=== PATIENT | female | born 1960 | race Caucasian/White ===

== ENCOUNTER 2018-09-19 07:59 | Outpatient (CLI) ==
--- NOTE | 2018-09-19 12:03 | MAMMO ---
EXAM: Digital screening mammogram with tomosynthesis HISTORY: Screening COMPARISON: 10/01/2013 FINDINGS: Digital MLO and CC views of the right and left breast were performed. Tomosynthesis was performed. Computer aided detection utilized. There are scattered fibroglandular densities. Benign left breast mass and benign bilateral calcifications. There is no evidence for mass, asymmetry, dis tortion, or suspicious calcifications in either breast. IMPRESSION: 1. No evidence of malignancy in the right or left breast. 2. Annual screening mammogram is recommended in one year. BIRADS category 2, benign
== END 2018-09-19 08:00 | disposition home or self-care (01) ==
LOC: RAD 07:59
PROVIDERS: ATTEND Nurse Practitioner Family
DX: Z12.31 Encounter for screening mammogram for malignant neoplasm of breast (principal)

== ENCOUNTER 2018-10-11 21:51 | Emergency (ER) ==
[2018-10-11 22:01] VITALS: BP 153/93; TEMP 98.6; BMI 27.9
[2018-10-11] MEDS ORDERED: PROTONIX IV IVP STA (22:06)
[2018-10-11] MEDS ORDERED: GI COCKTAIL PO STA (22:07)
[2018-10-11] MEDS ORDERED: PEPCID IVP STA (22:07)
--- NOTE | 2018-10-11 22:34 | CT ---
EXAM: CT chest without contrast. HISTORY: Chest pain. PROCEDURE: Contiguous axial CT images of the chest without contrast with coronal and sagittal reform ats. FINDINGS: The heart is within normal limits in size. The thoracic aorta is within normal limits in d iameter. There are calcified mediastinal and hilar lymph nodes and calcified granulomas in the lungs . There are mild emphysematous changes in the upper lobes. There is minimal bibasilar dependent ate lectasis. There are degenerative changes in the spine. CT abdomen/pelvis 10/11/2018 dictated laurie pearson. Impression: Minimal bibasilar dependent atelectasis. Mild chronic obstructive pulmonary disease. Old granulomatous disease.
--- NOTE | 2018-10-11 22:40 | CT ---
EXAM: CT of the abdomen and pelvis without contrast. HISTORY: Epigastric pain. PROCEDURE: Contiguous axial CT images of the abdomen and pelvis without contrast with coronal and sa gittal reformats. FINDINGS: The liver, gallbladder, pancreas, spleen, adrenal glands and kidneys are normal in appearan ce. The abdominal aorta is within normal limits in diameter. There are atherosclerotic calcificatio ns in the major arteries of the abdomen and pelvis. The appendix is normal in appearance. There is fecal stasis in the colon. There is diverticulosis of the colon with no evidence of diverticulitis. No free fluid or free air in the abdomen or pelvis. The bladder is minimally filled and normal in a ppearance. The uterus is surgically absent. There are degenerative changes in the spine. Impression: Diverticulosis of the colon with no evidence of diverticulitis. Fecal stasis in the colon. Atherosclerotic vascular disease. Hysterectomy.
--- NOTE | 2018-10-11 23:25 | ED.PDOC ---
General ED Provider: Dr. CONI OLIVARES-ER Chief Complaint: Chest Pain Stated Complaint: i ate a chili dog and my chest hurt Time Seen by Physician: 21:55 Mode of Arrival: Walk-In Information Source: Patient, Family Exam Limitations: No limitations Primary Care Provider: BRAULIO MARX Nursing and Triage Documentation Reviewed and Agree: Yes Does patient meet sepsis criteria?: No System Inflammatory Response Syndrome: Not Applicable Sepsis Protocol: For patient's 13 years and over: Temp is 96.8 and below OR 101 and greater Pulse >90 BPM Resp >20/minute Acutely Altered Mental Status Are patient's symptoms suggestive of a new infection, such as: -Pneumonia -Skin, Soft Tissue -Endocarditis -UTI -Bone, Joint Infection -Implantable Device -Acute Abdominal Infection -Wound Infection -Meningitis -Blood Stream Catheter Infection -Unknown Cardiovascular Complaint Exam - Chest Pain Complaint/Exam Onset: Sudden Duration: 30 min Symptoms Are: Resolved Initial Severity: Mild Current Severity: Mild Location: Reports: Discrete Character: Reports: Dull, Aching Aggravating: Reports: None Alleviating: Reports: None Associated Signs and Symptoms: Denies: Diaphoresis, Nausea, Vomiting, Fever, Palpitations, Cough, Hemoptysis, Back pain, Abdominal pain, Dizziness, Short of air, Calf pain, Calf swelling History of Healthcare-Acquired Pneumonia: Reports: No AMI/ACS Risk Factors: Reports: None TAD Risk Factors: Reports: None Pulmonary Embolism Risk Factors: Reports: None Prior Care for this Complaint: No Recent Stress Test: No Recent Echo/LV Function: No JVD Present: No Subcutaneous Emphysema Present: No Diminshed Breath Sounds: No Reproducible Chest Wall Pain: No Bilateral Pulses Present: Yes Unequal Pulses Noted: No Review of Systems - Review Of Systems Constitutional: Reports: No symptoms Eyes: Reports: No symptoms Ears, Nose, Mouth, Throat: Reports: No symptoms Respiratory: Reports: No symptoms Cardiac: Reports: Chest pain GI: Reports: No symptoms : Reports: No symptoms Musculoskeletal: Reports: No symptoms Skin: Reports: No symptoms Neurological: Reports: No symptoms Endocrine: Reports: No symptoms Hematologic/Lymphatic: Reports: No symptoms All Other Systems: Reviewed and Negative Past Medical History - Past Medical History Previously Healthy: No Endocrine: Reports: Unknown Cardiovascular: Reports: Unknown Respiratory: Reports: Unknown Hematological: Reports: Unknown Gastrointestinal: Reports: Unknown Genitourinary: Reports: Unknown Neuro/Psych: Reports: Unknown Musculoskeletal: Reports: Unknown Cancer: Reports: Unknown Last Menstrual Period: HAS HAD A HYSTERECTOMY - Surgical History General Surgical History: Reports: Unknown - Family History Family History: Reports: Unknown - Social History Smoking Status: Current every day smoker, Heavy tobacco smoker Hx Substance Use: No Alcohol Screening: None - Immunizations Tetanus Shot up to Date: (UNKNOWN) Physical Exam - Physical Exam Appearance: Well-appearing, No pain distress, Well-nourished Pain Distress: Mild Eyes: ADEEL, EOMI, Conjunctiva clear ENT: Ears normal, Nose normal, Oropharynx normal Neck: Supple Respiratory: Airway patent, Breath sounds clear, Breath sounds equal, Respirations nonlabored Cardiovascular: RRR, Pulses normal, No rub, No murmur GI/: Soft Musculoskeletal: Normal strength, ROM intact, No edema, No calf tenderness Skin: Warm, Dry, Normal color Neurological: Sensation intact, Motor intact, Reflexes intact, Cranial nerves intact, Alert, Oriented Psychiatric: Affect appropriate, Mood appropriate Interpretation - Radiology Interpretation Radiology Interpretation By: Radiologist Radiology Results: Negative Exam Interpreted: CT Scan - EKG Interpretation Time of EKG #1: 23:25 Rate: Normal Rhythm: Sinus Ectopy: None [place]: NL ST Segment: Normal Interpretation: nsr Critical Care Note - Critical Care Note Total Time (mins): 0 Course - Course Hematology/Chemistry: 10/11/18 22:10 10/11/18 22:10 Orders, Labs, Meds: Lab Review 10/11/18 10/11/18 10/11/18 22:10 22:10 22:10 WBC 7.13 RBC 4.08 L Hgb 13.4 Hct 39.8 MCV 97.5 MCH 32.8 H MCHC 33.7 RDW Coeff of Hali 12.2 Plt Count 244 Immature Gran % (Auto) 0.3 Neut % (Auto) 35.6 Lymph % (Auto) 51.1 H Whitley % (Auto) 8.0 Eos % (Auto) 3.9 Baso % (Auto) 1.1 Immature Gran # (Auto) 0.0 Neut # (Auto) 2.5 Lymph # (Auto) 3.6 H Whitley # (Auto) 0.6 Eos # (Auto) 0.3 Baso # (Auto) 0.1 D-Dimer (Manual) Sodium 138.2 Potassium 3.66 Chloride 101.8 Carbon Dioxide 28.0 Anion Gap 12.06 BUN 18.5 H Creatinine 1.14 Estimated GFR (MDRD) 49.00 BUN/Creatinine Ratio 16.22 Glucose 119.0 H Calcium 8.98 Total Bilirubin 0.47 AST 36.1 H ALT 15.6 Alkaline Phosphatase 93.5 Total Creatine Kinase 114.1 Troponin I < 0.012 Total Protein 7.37 Albumin 4.51 Globulin 2.86 Albumin/Globulin Ratio 1.57 Amylase 99.1 Lipase 219.7 TSH 12.700 H Free T4 1.21 10/11/18 22:10 WBC RBC Hgb Hct MCV MCH MCHC RDW Coeff of Hali Plt Count Immature Gran % (Auto) Neut % (Auto) Lymph % (Auto) Whitley % (Auto) Eos % (Auto) Baso % (Auto) Immature Gran # (Auto) Neut # (Auto) Lymph # (Auto) Whitley # (Auto) Eos # (Auto) Baso # (Auto) D-Dimer (Manual) 622.88 Sodium Potassium Chloride Carbon Dioxide Anion Gap BUN Creatinine Estimated GFR (MDRD) BUN/Creatinine Ratio Glucose Calcium Total Bilirubin AST ALT Alkaline Phosphatase Total Creatine Kinase Troponin I Total Protein Albumin Globulin Albumin/Globulin Ratio Amylase Lipase TSH Free T4 Orders Category Date Time Status EKG-(ED ONLY) Stat CARDIO 10/11/18 21:59 Completed ED NAIL TECHNICIAN APPLIED .ONCE EMERGENCY 10/11/18 21:59 Active ED IV/MEDIPORT/POWERPORT .ONCE EMERGENCY 10/11/18 21:59 Active AMYLASE Stat LAB 10/11/18 22:10 Completed CBC W/ AUTO DIFF Stat LAB 10/11/18 22:10 Completed COMPREHENSIVE METABOLIC PANEL Stat LAB 10/11/18 22:10 Completed CREATINE KINASE Stat LAB 10/11/18 22:10 Completed D-DIMER Stat LAB 10/11/18 22:10 Completed FREE T4 (FREE THYROXINE) Stat LAB 10/11/18 22:10 Completed LIPASE Stat LAB 10/11/18 22:10 Completed THYROID STIMULATING HORMONE Stat LAB 10/11/18 22:10 Completed TROPONIN I Stat LAB 10/11/18 22:10 Completed 0.9 % Sodium Chloride [Saline Flush] MEDS 10/11/18 21:59 Ordered 1 syr IVF PRN PRN Famotidine Inj [Pepcid] MEDS 10/11/18 22:07 Discontinued 40 mg IVP ONCE STA Mag-Al Plus//Lidocaine [Gi Cocktail] MEDS 10/11/18 22:07 Discontinued 30 ml PO ONCE STA Pantoprazole Sodium [Protonix IV] MEDS 10/11/18 22:06 Discontinued [address] ABDOMEN/PELVIS WO CONTRAST Stat RADS 10/11/18 22:[address] CHEST W/O CONTRAST Stat RADS 10/11/18 22:06 Completed Medications Generic Name Dose Route Start Last Admin Trade Name Freq PRN Reason Stop Dose Admin Sodium Chloride 1 syr 10/11/18 21:59 10/11/18 22:31 Saline Flush IVF 1 syr PRN PRN Administration To flush IV Discontinued Medications Generic Name Dose Route Start Last Admin Trade Name Freq PRN Reason Stop Dose Admin Al Hydroxide/Mg Hydroxide 30 ml 10/11/18 22:07 10/11/18 22:24 Gi Cocktail PO 10/11/18 22:08 30 ml ONCE STA Administration Famotidine 40 mg 10/11/18 22:07 10/11/18 22:27 Pepcid IVP 10/11/18 22:08 40 mg ONCE STA Administration Pantoprazole Sodium 40 mg 10/11/18 22:06 10/11/18 22:24 Protonix Iv IVP 10/11/18 22:07 40 mg ONCE STA Administration i had planned on admitting her for further testing but she declined-- understands risk even but declines admission Vital Signs: Temp Pulse Resp BP Pulse Ox 10/11/18 21:51 98.6 F 82 18 153/93 H 96 VIOLETA Risk Score VIOLETA Risk Score: Risk Score Odds of by 30D 0 0.1 (0.1-0.2) 1 0.3 (0.2-0.3) 2 0.4 (0.3-0.5) 3 0.7 (0.6-0.9) 4 1.2 (1.0-1.5) 5 2.2 (1.9-2.6) 6 3.0 (2.5-3.6) 7 4.8 (3.8-6.1) Departure - Departure Time of Disposition: 23:26 Disposition: AMA Discharge Problem: Chest pain Instructions: Chest Pain (ED) Condition: Good Pt referred to PMD for follow-up: No IPMP verified?: No Allergies/Adverse Reactions: Allergies clarithromycin [From Biaxin] Adverse Reaction (Verified 10/11/18 21:59) Swelling Iodinated Contrast- Oral and IV Dye Adverse Reaction (Verified 10/11/18 21:59) Rash Home Medications: Ambulatory Orders Ranitidine HCl [Zantac] 150 mg PO QDAC PRN 10/11/18 Disposition Discussed With: Patient, Family
== END 2018-10-11 23:35 | disposition left against medical advice (07) ==
LOC: ED 21:51
DX: R07.9 Chest pain, unspecified (principal); Z72.0 Tobacco use
CPT/HCPCS: 36415; 80053; 82150; 82550; 83690; 84439; 84443; 84484; 85025; 85379; 93005; 93010; 96374; 96375; 99284

== ENCOUNTER 2019-01-10 23:40 | Emergency (ER) ==
[2019-01-10 23:52] VITALS: BP 157/94; TEMP 97.8; BMI 28.0
--- NOTE | 2019-01-11 00:23 | ED.PDOC ---
General ED Provider: Dr. CONI OLIVARES-ER Chief Complaint: Hand Pain/Injury Stated Complaint: my left hand is numb and tingling when i bend my wrist Time Seen by Physician: 23:45 Mode of Arrival: Walk-In Information Source: Patient Exam Limitations: No limitations Primary Care Provider: BRAULIO MARX Nursing and Triage Documentation Reviewed and Agree: Yes Does patient meet sepsis criteria?: No System Inflammatory Response Syndrome: Not Applicable Sepsis Protocol: For patient's 13 years and over: Temp is 96.8 and below OR 101 and greater Pulse >90 BPM Resp >20/minute Acutely Altered Mental Status Are patient's symptoms suggestive of a new infection, such as: -Pneumonia -Skin, Soft Tissue -Endocarditis -UTI -Bone, Joint Infection -Implantable Device -Acute Abdominal Infection -Wound Infection -Meningitis -Blood Stream Catheter Infection -Unknown Neurological Complaint Exam - Neurological Deficit Complaint/Exam Patient Complains of: Reports: Abnormal sensation Symptom Onset Unknown: No Symptom Onset Date: 01/10/19 Onset: Sudden Symptoms Are: Resolved Initial Severity: Mild Current Severity: Mild Location: Reports: LUE Character: Reports: Numbness, Tingling, Paresthesia. Denies: Motor weakness, Paralysis, Sensory loss, Impaired speech Aggravating: Reports: None Alleviating: Reports: None Associated Signs and Symptoms: Denies: Confusion, Agitation, Responsiveness, LOC , Headache, Fever, Nuchal rigidity, Recent trauma, Remote trauma, Recent illness Related Surgical History: Reports: None Carotid Bruit Present: No Glascow Coma Scale (see protocol): 15 Meningeal Signs Positive: No Focal Weakness: Present: None Focal Sensory Loss: Present: None Gait: Normal Nystagmus Present: No Gag Reflex Present: Yes [id number]: Normal Findings Romberg Test Positive: No Babinski Sign: Negative Right, Negative Left Heel to Toe Normal: Yes Signs of Trauma: No IV t-PA Prescribed: No Differential Diagnoses: Other Review of Systems - Review Of Systems Constitutional: Reports: No symptoms Eyes: Reports: No symptoms Ears, Nose, Mouth, Throat: Reports: No symptoms Respiratory: Reports: No symptoms Cardiac: Reports: No symptoms GI: Reports: No symptoms : Reports: No symptoms Musculoskeletal: Reports: No symptoms Skin: Reports: No symptoms Neurological: Reports: Tingling (left hand). Denies: Weakness Endocrine: Reports: No symptoms Hematologic/Lymphatic: Reports: No symptoms All Other Systems: Reviewed and Negative Past Medical History - Past Medical History Previously Healthy: No Endocrine: Reports: Unknown Cardiovascular: Reports: Unknown Respiratory: Reports: Unknown Hematological: Reports: Unknown Gastrointestinal: Reports: Unknown Genitourinary: Reports: Unknown Neuro/Psych: Reports: Unknown Musculoskeletal: Reports: Unknown Cancer: Reports: Unknown Last Menstrual Period: hyst. at 45 y/o - Surgical History General Surgical History: Reports: Unknown - Family History Family History: Reports: Unknown - Social History Smoking Status: Current every day smoker, Heavy tobacco smoker Hx Substance Use: No Alcohol Screening: None - Immunizations Tetanus Shot up to Date: No Physical Exam - Physical Exam Appearance: Well-appearing, No pain distress, Well-nourished Eyes: ADEEL, EOMI, Conjunctiva clear ENT: Ears normal, Nose normal, Oropharynx normal Neck: Supple Respiratory: Airway patent, Breath sounds clear, Breath sounds equal, Respirations nonlabored Cardiovascular: RRR, Pulses normal, No rub, No murmur GI/: Soft, Nontender, No masses, Bowel sounds normal, No Organomegaly Musculoskeletal: Normal strength, ROM intact, No edema, No calf tenderness Skin: Warm, Dry, Normal color Neurological: Alert, Oriented Psychiatric: Affect appropriate, Mood appropriate (noted phalens and tinels sign are positive ) Critical Care Note - Critical Care Note Total Time (mins): 0 Course - Course Vital Signs: Temp Pulse Resp BP Pulse Ox 01/10/19 23:41 97.8 F 91 H 20 157/94 H 97 Departure - Departure Time of Disposition: 00:27 Disposition: HOME SELF-CARE Discharge Problem: Carpal tunnel syndrome of left wrist Instructions: Paresthesia (ED) Condition: Good Pt referred to PMD for follow-up: Yes IPMP verified?: No Additional Instructions: carpal tunnel wrist brace--neurontin 100mg tid prn #30---talk to your pcp about nerve conduction testing Allergies/Adverse Reactions: Allergies clarithromycin [From Biaxin] Adverse Reaction (Verified 01/10/19 23:52) Swelling Iodinated Contrast Media [Iodinated Contrast- Oral and IV Dye] Adverse Reaction (Verified 01/10/19 23:52) Rash Home Medications: Ambulatory Orders Ranitidine HCl [Zantac] 150 mg PO QDAC PRN 10/11/18 Alprazolam [Xanax] 0.5 mg PO DAILY PRN 01/10/19 Amitriptyline HCl 100 mg PO DAILY 01/10/19 Hydrocodone/Acetaminophen [Hydrocodone-Acetamin 5-325 mg] 5 - 325 mg PO TID PRN 01/10/19 Lovastatin [Altoprev] 20 mg PO DAILY 01/10/19 Meloxicam [Mobic] 7.5 mg PO DAILY 01/10/19 Disposition Discussed With: Patient
== END 2019-01-11 00:30 | disposition home or self-care (01) ==
LOC: ED 23:40
DX: G56.02 Carpal tunnel syndrome, left upper limb (principal)
CPT/HCPCS: 99282